=== PATIENT | male | born 1980 | race African-American/Black ===

== ENCOUNTER 2019-11-03 19:55 | Emergency (ER) | payer OTHER ==
[~2019-11-03] VITALS: Ht 180.3 cm; Wt 68.0 kg
[2019-11-03] MEDS ORDERED: ZOLOFT50 M1 PO (20:11)
[2019-11-03 20:52] LABS: URINE BLOOD NEGATIVE (Negative); URINE CLARITY CLEAR; URINE COLOR YELLOW; URINE GLUCOSE-RANDOM NEGATIVE (Negative); URINE KETONES 1+ (Negative); URINE LEUKOCYTES-REFLEX NEGATIVE (Negative); URINE NITRITE-REFLEX NEGATIVE (Negative); URINE PROTEIN 1+ (Negative); URINE SPECIFIC GRAVITY >= 1.030 (1.005-1.030)
[2019-11-03 20:55] LABS: ICTOTEST (BILI CONFIRMATORY) Negative (Negative); URINE BILIRUBIN 1+ (Negative)
[2019-11-03 21:07] LABS: ABSOLUTE BASOPHILS 0.1 thou/uL (0.0-0.2); ABSOLUTE LYMPHOCYTES 2.3 thou/uL (0.8-5.3); ABSOLUTE NEUTROPHILS 5.1 thou/uL (1.6-8.1); EOSINOPHILS 0.4 %; HEMATOCRIT 46.4 % (42.0-52.0); HEMOGLOBIN 16.3 gm/dL (14.0-18.0); LYMPHOCYTES 26.9 %; MCH 34.4 pg (26.0-34.0); MCHC 35.1 g/dL (28.0-37.0); MCV 98.1 fL (80.0-100.0); MONOCYTES 11.3 %; MPV 9.1 fl. (7.2-11.1); NUCLEATED RBCS 0 /100WBC; PLATELET COUNT* 211 thou/uL (150-400); POLYS 60.4 %; RBC 4.73 mil/uL (4.50-6.00); WBC 8.4 thou/uL (4.0-11.0)
[2019-11-03 21:14] LABS: CALCIUM 8.9 mg/dL (8.5-10.1); CREATININE 1.1 mg/dL (0.6-1.3)
[2019-11-04 00:02] VITALS: BP 119/82
== END 2019-11-04 00:04 | disposition home or self-care (01) ==
LOC: M.ERS 19:55
PROVIDERS: Emergency Medicine
DX: N43.3 Hydrocele, unspecified (principal); R10.32 Left lower quadrant pain

== ENCOUNTER 2020-01-28 20:30 | Emergency (ER) | payer OTHER ==
[~2020-01-28] VITALS: Ht 180.3 cm; Wt 72.6 kg
[~2020-01-28 20:30] MED LIST: ZOLOFT50 M1 PO
[2020-01-28 21:10] LABS: URINE BILIRUBIN NEGATIVE (Negative); URINE BLOOD NEGATIVE (Negative); URINE CLARITY CLEAR; URINE COLOR YELLOW; URINE GLUCOSE-RANDOM NEGATIVE (Negative); URINE KETONES NEGATIVE (Negative); URINE LEUKOCYTES-REFLEX NEGATIVE (Negative); URINE NITRITE-REFLEX NEGATIVE (Negative); URINE PROTEIN NEGATIVE (Negative); URINE SPECIFIC GRAVITY >= 1.030 (1.005-1.030); URINE UROBILINOGEN 0.2 E.U./dl (0.2-1.0)
[2020-01-29] MEDS ORDERED: BACLOFEN 10MG T10 MG PO (00:02)
[2020-01-29] MEDS ORDERED: HYDROCODON-ACE1 EAC8 PO (00:02)
[2020-01-29] MEDS ORDERED: MEDROLDOSEPACK PO (00:02)
[2020-01-29] MEDS ORDERED: FLEXERIL PO (00:02)
[2020-01-29 00:10] VITALS: BP 143/96
== END 2020-01-29 00:10 | disposition home or self-care (01) ==
LOC: M.ERS 20:30
PROVIDERS: Emergency Medicine
DX: S39.012A Strain of muscle, fascia and tendon of lower back, initial encounter (principal); X58.XXXA Exposure to other specified factors, initial encounter; Y93.89 Activity, other specified; Y92.89 Other specified places as the place of occurrence of the external cause; Y99.8 Other external cause status